=== PATIENT | female | born 2000 | race Caucasian/White ===

== ENCOUNTER 2025-05-18 20:24 | Emergency (ER) | payer OTHER, SELFPAY ==
--- NOTE | ~2025-05-18 | XR_ITS ---
CLINICAL HISTORY: pain, swelling 4 view left wrist Comparison: None provided Findings: No fractures or dislocations. No significant loss of joint space, osteophyte, or erosions. No radiopaque foreign body. IMPRESSION: 1. No acute fracture or subluxation. This document has been electronically signed by: Fabienne Segura MD on 05/18/2025 22:15:02
--- NOTE | 2025-05-18 20:46 | ED_ITS ---
HPI - General Adult General Chief complaint: Extremity Injury, Upper Stated complaint: left hand/wrist injury Time Seen by Provider: 05/19/25 00:03 Source: patient Limitations: no limitations History of Present Illness ED Provider: Emelyn Sanford PA-C HPI narrative: 25-year-old female presents with left wrist sprain. Patient states she tripped and fell in her driveway last night, catching her fall with her hands, now with left wrist pain. Related Data Allergies Allergy/AdvReac Type Severity Reaction Status Date / Time No Known Allergies Allergy Verified 05/18/25 20:51 Review of Systems Review of Systems: Yes all other systems are reviewed and are negative Constitutional: Constitutional: Denies fatigue and Denies fever(s) Musculoskeletal: Musculoskeletal: Reports arthralgias and Reports joint swelling Endocrine: Endocrine: Denies fatigue PMFSH Past Medical History Attestation statement: The following information was validated with the patient. Social History Social History Advance Directives: No Advance Directives Information Provided: Yes Do you have a plan to hurt others: No Plan Physical Exam ED Vital Signs: Vital Signs - 24 hr 05/18/25 20:47 Temperature 97.7 F Pulse Rate 95 Respiratory Rate 16 Blood Pressure 122/79 Pulse Oximetry 97 Oxygen Delivery Method Room Air BMI result Body Mass Index 28.8 Const Other: Alert Orientation/consciousness: patient oriented x3 Resp Effort & Inspection: normal respiratory effort Cardio Other: Normal peripheral perfusion Skin Other: Warm dry no rash Neuro General: patient oriented x3, gait normal, no focal motor deficits and CN's II- XI intact bilaterally Extrem Other: No tenderness in the anatomical snuffbox, minimal flexion and extension of the wrist secondary to pain, subtle swelling noted that has generalized Psych Other: Cooperative Course Course Course Narrative: Medical screening exam performed. Please refer to detailed history, exam, evaluation, and management by primary provider. Tripped and fell onto left hand, pain at the left wrist. Occurred last night. JS Medications Administered Discontinued Medications Generic Name Dose Route Start Last Admin Trade Name Freq PRN Reason Stop Dose Admin Acetaminophen 975 mg 05/19/25 00:09 05/19/25 00:40 Acetaminophen 325 Mg Tablet PO 05/19/25 00:10 975 mg ONCE ONE Administration Ibuprofen 600 mg 05/19/25 00:09 05/19/25 00:40 Ibuprofen 600 Mg Tablet PO 05/19/25 00:10 600 mg ONCE ONE Administration Medical Decision Making Medical Decision Making MDM Narrative: 25-year-old female presents with left wrist sprain. Patient states she tripped and fell in her driveway last night, catching her fall with her hands, now with left wrist pain. No chronic issues History: Per patient I have considered the following differential diagnoses: Fracture, dislocation, sprain, contusion, scaphoid fracture Plan: X-ray obtained from triage there was no fracture or dislocation, treating the patient for his sprain. We will place her in a splint, send with home care instructions. Giving ibuprofen and Tylenol I have independently reviewed the following tests: X-ray left wrist: view left wrist Comparison: None provided Findings: No fractures or dislocations. No significant loss of joint space, osteophyte, or erosions. No radiopaque foreign body. IMPRESSION: 1. No acute fracture or subluxation. Differential Diagnosis Differential Diagnoses: The differential diagnosis associated with the presentation includes See medical decision-making Admission/Observation Consideration of admission/observation: Escalation of care including admission/observation considered Not applicable Radiology Impression Discussion of test interpretation with radiology: I have reviewed the radiologist's reading. Discharge Plan Discharge Clinical Impression: Sprain and strain of wrist Patient Disposition: Home, Self-Care Instructions: P.R.I.C.E. Treatment (ED), Wrist Sprain (ED) Additional Instructions: The x-ray was negative for fracture or dislocation, you have a sprain. See home care instructions. Use the brace as needed, you can use [id number] ibuprofen 600 mg taken every 6 hours with food, along with [id number] Tylenol 1000 mg taken every 8 hours. Follow up with primary care as needed. Stand Alone Forms: Work/School Release Interventions: ED Discharge Assessment Last Done: 05/19/25 00:58 Discharge Date/Time: 05/19/25 00:58 Print Language: Maltese
[2025-05-18 20:47] VITALS: BP 122/79; PULSE 95; RESP 16; TEMP 36.5; O2SAT 97; BMI 28.8
--- OUTSIDE RECORDS SUMMARY | 2025-05-19 00:27 | XMS_ITS | Clinical Summary ---
Author Organization [facility] Address [address] [place] [address] Phone Care Team Providers Care Road Inspector Name Role Phone Pcp, Unknown Primary Care Provider Unavailabl e Allergies No known active allergies Medications Hospital, Clinic, or Other Facility Administered Medication Ordered Dose Route Frequency Start Date End Date Status levonorgestreL (MIRENA) 20 mcg/24 hours (6 yrs) 52 mg intrauterine device 1 eachIndications:Encounter for insertion of intrauterine contraceptive device 1 each Utrn Every 5 years 08/05/2020 A ctive Active Problems Problem Noted Date Diagnosed Date Encounter for contraceptive management 5 Assessment & Plan (03/27/2025 10:39 PM EDT): Will replace the MIrena at the full 8 years, 2027, sooner prn Resolved Problems Problem Noted Date Diagnosed Date Resolved Date Normal intrauterine , antepartum 06/22/2020 08/05/2020 Supervision of normal 10/28/2019 08/05/2020 Overview (06/12/2020): CNM OB - CMI - 0 Rh POS GC/Chlam neg Tdap 05/05/20 Flu * Hgb 12.5 GTT 119 GBS neg PPBC ?IUD screening - plans ERA Assessment & Plan (06/20/2020 12:21 PM EST): Lan is doing well, no OB concerns. Feeling generally uncomfortable and eager to have the baby. Was induced last time. Had PD BPP today - 03/22, GABRIEL 9.16, vertex. Reviewed postdates plan - she would like an IOL on 06/22. SVE last week posterior and unable to determine dilation; offered to do again today, and she declines. Will come at 1900 on Tuesday. +FM. Denies UCs, VB, LOF. Labor and warning signs reviewed. Assessment & Plan (06/13/2020 12:29 PM EDT): Lan is doing well, no OB concerns. Feeling generally uncomfortable and hoping for labor soon. Discussed FM, PEC, and labor precautions. +FM. Denies LOF, VB, UCs. SVE revealed soft, possibly moderately effaced cervix, but it was very posterior and membranes unable to be swept. Discussed postdates POC, and she will schedule a BPP with her in-person appt next week. Assessment & Plan (05/26/2020 3:28 PM EDT): Lan is doing well, no OB concerns. Feeling generally uncomfortable and tired. Discussed PPBC - she is thinking she'd like an IUD. GBS collected today. Discussed FM, PEC, and labor precautions. +FM. Denies LOF, VB, UCs. NV in one week. Assessment & Plan (04/10/2020 12:18 PM EDT): Lan is doing well, no concerns. Having hip pain while sleeping, but pillow helps. Experiencing general discomforts - strategies reviewed. Would like TDaP today, but we are out - offer NV. Discussed FM, PTL, PEC, and labor precautions. +FM. Denies LOF, VB, UCs. NV at 34 weeks. Assessment & Plan (03/06/2020 4:56 PM EDT): Lan is here doing well. Denies VB/LOF/Ctxs. + FM. Discussed CBC/GTT - orders placed, Lan will do in the next couple of weeks. Discussed CBC policy updates, that was reassuring to Lan to hear. Reviewed support group. Having some hip pain - comfort measures and stretches reviewed - encouraged abdominal support. Assessment & Plan (01/29/2020 1:22 PM EDT): Lan is doing well today- just had anatomy scan, all views wnl. She is eager to get home to find out the sex of the baby with her partner Levi. She is feeling movement. No questions/concerns today. She declines virtual visit at 24wks, will return at 26-28wks for office visit and labs. Encounter for insertion of i ntrauterine contraceptive device 05/19/2018 10/28/2019 Overview (05/19/2018): IUD Lot # [id number] Exp 07/2020 General counseling and advic e for contraceptive management 05/04/2018 11/16/2019 Overview (05/04/2018): Lan came in for IUD insertion but has been sexually active in the past 2 wks and has not been using condoms. D/C OCP 3 wks ago I reviewed unfortunately it would not be safe to place an IUD d/t risk of very early Assessment & Plan (05/04/2018 2:44 PM EDT): We discussed that we could place an IUD in 2 wks if she uses condoms and minipill for 2 wks and has a neg UPT Discussed Contraception options would like Mirena IUD. Reviewed risks/benefits including expulsion, perforation and infection Encounters Date Type Department Care Team Description 03/25/2025 10:40 AM EDT Procedure visit [facility] [address] [place] [address] [place] [id number] Kelly Nowak MD Encounter for contraceptive management, unspecified type (Primary Dx); Screening for cervical cancer from Last 3 Months Immunizations Immunization Administration Dates Next Due DTaP 05/04/2004, 2,2000,09/16,2000 [id number] FORMULATION 07/29/2009,06/15 HPV,quadrivalent 01/31/2014,10/03/2013, 3 Hepatitis B 01/16/2001,2000,2000 Hib,PRP-T 07/05/2001, 1,2000,06/17 INFLUENZA, SPLIT VIRUS, TRIVALENT PF 07/01/2016 INFLUENZA, SPLIT VIRUS, TRIV ALENT W/ PRESERVATIVE IM 05/22/2017,06/13/2012,06/26/2010 IPV 05/04/2004, 1,2000,06/17 Influenza Quadrivalent Prese rvative Free IM 06/02/2020,05/03/2018,06/11/2015,06/22,07/27/2013 Influenza quadrivalent nasal 06/28/2011 Influenza, Unspecified Formulation 07/29/2009 MMR 05/04/2004,07/05/2001 Meningococcal MCV4P 06/28/2011 Pneumococcal conjugate, PCV 7 07/05/2001 ,2000,2000,06/17 Tdap 05/05/2020,04/14/2017,06/28/2011 Varicella 06/13/2007,05/01/2001 Family History Medical History Relation Comments Abnormal EKG Brother Melanoma Father Pancreatic cancer Maternal Grandfather Hypertension Maternal Grandmother Hypertension Mother Stroke Paternal Grandfather Relation Status Comments Brother Alive Daughter Alive Father Alive Maternal Grandfather Maternal Grandmother Alive Mother Alive Paternal Grandfather Paternal Grandmother (Age 98) Social History Tobacco Use Types Packs/Day Years Used Date Smoking Tobacco: Never Smokeless Tobacco: Never Tobacco Cessation:Counseling Given: Not Answered Alcohol Use Standard Drinks/Week Comments No 0 (1 standard drink = 0.6 oz pur e alcohol) Child or Family Care Answer Date Record ed Do you have problems with on e of the following making it difficult for you to work, study, or receive health care? No 12/21/2018 Education Answer Date Recorded Are you interested in more education? Not on becky e 12/10/2022 Are you concerned about learning? Not on file 12/10/2022 No 12/10/2022 No 12/10/2022 Food Answer Date Recorded Within the past 6 months we worried whether our food would run out before we got money to buy more. Never True 12/21/2018 Within the past 6 months the food we bought just didn't last and we didn't have enough money to get more. Never True 9 Paying for Meds Answer Date Recorded Do you have trouble paying for medicines? No 12/21/2018 Paying Utility Bills Answer Date Record ed Do you have trouble paying your heating or elect ricity bill? No 12/21/2018 Transportation Answer Date Recorded Has the lack of transportati on kept you from medical appointments or from getting medications? No 12/21/2018 Digital Access Answer Date Recorded No 01/07/2023 No 01/07/2023 Reliable internet access at home? Not on file 01/07/2023 Device with a working camera? 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 file Not on file Not on file [email or web address] Not on file Not on file Not on file Last Filed Vital Signs Vital Sign Reading Time Taken Comments Blood Pressure 120/80 03/25/2025 10:49 AM EDT Pulse 80 10/29/2024 9:11 AM EDT Temperature 36.6 C (97.9 F) 10/29/2024 9:11 AM EDT Respiratory Rate 19 10/29/2024 9:11 AM EDT Oxygen Saturation 99% 10/29/2024 9:11 AM EDT Inhaled Oxygen Concentration - - Weight 95.5 kg (210 lb 9.6 oz) 03/25/2025 10:49 AM EDT Height 172.7 cm (5' 7.99 ) 03/25/2025 10:49 AM E DT Body Mass Index 32.03 03/25/2025 10:49 AM EDT Plan of Treatment Health Maintenance Due Date Last Done Comments DEPRESSION SCREENING 05/03/2019 05/03/2018 INFLUENZA VACCINE (#1) 2025 , 05/03/2018, 05/22/2017, Additional history exists COVID-19 VACCINE ( season) 2025 06/13/2021 SMOKING Hx and SMOKELESS TOBACCO SCREENING 03/25/2026 03/25/2025 PAP SMEAR 03/25/2028 03/25/2025 Adult Td,Tdap Booster 05/05/2030 05/05/2020 , 04/14/2017, 06/28/2011 HIB VACCINES Completed 07/05/2001, 12/2000, 2000, Additional history exists PNEUMOCOCCAL VACCINES (0-49 years) Aged Out 07/05/2001, 2000, 2000, Additional history exists No longer eligible based on patient's age to complete this topic MENINGOCOCCAL VACCINES (ACWY) Aged Out 06/28/2011 No longer eligible based on patient's age to complete this topic HPV VACCINES Completed 01/31/2014, 09/15, 07/27/2013 HEPATITIS C SCREENING Completed 11/06/2019 , 11/06/2019, 12/21/2018 HIV ONE-TIME SCREENING (18-65 YEARS) Completed 12/04/2019 HEPATITIS A VACCINES Aged Out No long er eligible based on patient's age to complete this topic MENINGOCOCCAL VACCINES (B) Aged Out N o longer eligible based on patient's age to complete this topic Medical Devices Implanted Type Area Ginning Operator Device Identifier Shelf Expiration Date Model / Serial / Lot Iud Implanted: (Quantity not on file) Intrauterine Device Procedures Procedure Name Priority Date/Time Associated Diagnosis Comments PAP TEST Routine 03/25/2025 12:00 AM EDT HEPATITIS C ANTIBODY, QUALITATIVE Routine 11/06/2019 10:22 AM EDT Routine screening for STI (sexually transmitted infection) from Last 3 Months or Most Recently Relevant to Health Maintenance Results * Pap Test (03/25/2025 12:00 AM EDT) 03/25/2025 03/26/2025 10: 03 AM EDT Narrative SEE NARRATIVE - 03/27/2025 1:56 PM EDT [address] [address] Pressure Controller: Severiano Corbett MD GARBAGE COLLECTOR Cytology Report FINAL DIAGNOSIS A. PAP SMEAR (THIN PREP) CE: SPECIMEN ADEQUACY: Satisfactory for evaluation; transformation zone present. INTERPRETATION: NEGATIVE FOR INTRAEPITHELIAL LESION OR MALIGNANCY. Coccobacilli consistent with shift in jodie Electronically Signed Out By: NELLY Huerta(ASCP) The Pap test is a screening test primarily for squamous cancers and precursors and has associated false-negative and false-positive results. New technologies such as liquid-based preparations may decrease but will not eliminate all false-negative results. Regular sampling and follow-up of unexplained clinical signs and symptoms are recommended to minimize false negative results. CLINICAL HISTORY Date of Last Menstrual Period: 03-16-2025 Contraceptive History: IUD Other Clinical Conditions: Screening Pap SPECIMEN SOURCE A: PAP SMEAR (THIN PREP) CE Patient Name: LAN WHALEN : 2000 (Age: 24) Sex: F Institution: [facility] Location: [facility] Date of Collection: 03/25/2025 Date of Reported: 03/27/2025 13:56 Results to: Kelly Nowak MD us Kelly Nowak MD CYTOLOGY ORDERABLES Final Result SEE NARRATIVE * Hepatitis C antibody, qualitative (11/06/2019 10:22 AM EDT) HCV NON-REACTIV E NON-REACTI VE [facility] Blood 11/06/2019 10:2 2 AM EDT 11/06/2019 10:26 AM EDT us Mary [facility] BLOOD ORDERABLES Fin al Result Performing Organization Address City/[facility]/ZIP Co de Phone Number [facility] [address] [place] [address] from Last 3 Months or Most Recently Relevant to Health Maintenance Insurance [facility] [employer] CONNE[employer]CARE DIRECT CONNECTORCARE DIRECT CONNE[employer]CARE DIRECT CONNECTORCARE DIRECT CONNECTORCARE DIRECT [facility] CONNECTORCARE DIRECT Advance Directives For more information, please contact: [phone] (9AM - 5PM [place], Tuesday-Tuesday) Documents on File Type Date Recorded Patient Telemarketing Sales Representative Expl anation Healthcare Proxy 06/25/2020 3:12 PM * Full Code (Latest Code Status on File) Date Activated Date Inactivated Comments 06/22/2020 8:03 PM Question Answer Comments Code Status Confirmed With: Patient Care Teams Road Inspector Relationship Specialty Start Date End Date Pcp, Unknown PCP - General 07/14/22 Additional Source Comments The information contained in this document represents components of the legal health record. It is not the complete legal health record.[facility]
[2025-05-19 00:58] VITALS: BP 122/79; PULSE 95; RESP 16; TEMP 36.5; O2SAT 97
== END 2025-05-19 00:58 | disposition home or self-care (01) ==
PROVIDERS: Emergency Provider Emergency Medicine
DX: S63.502A Unspecified sprain of left wrist, initial encounter (principal); X50.1XXA Overexertion from prolonged static or awkward postures, initial encounter; Y93.9 Activity, unspecified; Y92.9 Unspecified place or not applicable; Y99.8 Other external cause status
CPT/HCPCS: 73110; 99283

== ENCOUNTER → 2025-05-18 20:51 | Outpatient (BNV) | payer OTHER, SELFPAY | PROVIDERS: Visit Provider Radiology Diagnostic Radiology | DX: S63.502A Unspecified sprain of left wrist, initial encounter (principal); W01.0XXA Fall on same level from slipping, tripping and stumbling without subsequent striking against object, initial encounter | CPT/HCPCS: 73110 ==